=== PATIENT | male | born 1970 | race Two or more races ===

== ENCOUNTER 2017-11-20 17:56 | Emergency (ER) | payer SELFPAY ==
[2017-11-20 18:02] VITALS: BP 112/73; PULSE 90; RESP 16; TEMP 100.1; O2SAT 95
--- NOTE | 2017-11-20 18:10 | ED PDOC ---
HPI: Psych/Substance Abuse Time Seen by Provider: 11/20/17 18:07 Chief Complaint (Nursing): Substance Abuse Chief Complaint (Provider): substance abuse History Per: Patient Additional Complaint(s): 47-year-old male presents to emergency department for evaluation of substance abuse. Patient admits to using heroin today. He complains of nausea, vomiting and abdominal pain upon arrival. He denies use of any other drugs. Past Medical History Reviewed: Historical Data, Nursing Documentation, Vital Signs Vital Signs: Last Vital Signs Temp 100.1 F H 11/20/17 18:01 Pulse 90 11/20/17 18:01 Resp 16 11/20/17 18:01 BP 112/73 11/20/17 18:01 Pulse Ox 95 11/20/17 18:01 - Medical History PMH: No Chronic Diseases - Family History Family History: States: No Known Family Hx - Living Arrangements Living Arrangements: Other (non-domiciled) - Social History Drugs: Opiates (heroin) - Allergies Allergies/Adverse Reactions: Allergies Allergy/AdvReac Type Severity Reaction Status Date / Time No Known Allergies Allergy Verified 11/20/17 18:00 Review of Systems ROS Statement: Except As Marked, All Systems Reviewed And Found Negative Psych: Positive for: Other (heroin abuse) Physical Exam - Reviewed Nursing Documentation Reviewed: Yes Vital Signs Reviewed: Yes - Physical Exam Appears: Positive for: Well, Non-toxic, No Acute Distress Skin: Negative for: Rash Eye Exam: Positive for: Normal appearance Cardiovascular/Chest: Positive for: Regular Rate, Rhythm Respiratory: Positive for: Normal Breath Sounds Neurologic/Psych: Positive for: Alert, Oriented - ECG O2 Sat by Pulse Oximetry: 95 Pulse Ox Interpretation: Normal Medical Decision Making Medical Decision Makin-year-old male with history of heroin abuse. Plan: IM an Patient is awake and alert, stable for discharge. Disposition - Clinical Impression Clinical Impression: Heroin abuse - Patient ED Disposition Is Patient to be Admitted: No - Disposition Referrals: [facility] [place] [Outside] Disposition: Routine/Home Disposition Time: 19:44 Condition: FAIR Instructions: Narcotic Abuse (ED) Forms: [employer] (Welsh)
== END 2017-11-20 20:23 | disposition home or self-care (01) ==
LOC: H.ER 17:56
DX: F11.10 Opioid abuse, uncomplicated (principal)
CPT/HCPCS: 82948; 96372; 99283; J2405

== ENCOUNTER 2017-12-04 22:02 | Emergency (ER) | payer SELFPAY ==
[2017-12-04 22:06] VITALS: RESP 16; TEMP 97.9
--- NOTE | 2017-12-04 23:04 | ED PDOC ---
HPI: Psych/Substance Abuse Time Seen by Provider: 12/04/17 22:16 Chief Complaint (Nursing): Substance Abuse Chief Complaint (Provider): Substance Abuse ED Caveat: Intoxicated History Per: Patient History/Exam Limitations: intoxication Additional Complaint(s): Bairon is a 47 y/o male with known heroine abuse who was brought in by EMS for heroine abuse. Patient admits to using heroine today but denies any other drugs or alcohol. He denies trauma. PMD: None Past Medical History Reviewed: Historical Data, Nursing Documentation, Vital Signs Vital Signs: Last Vital Signs Temp 97.9 F 12/04/17 22:06 Pulse 61 12/04/17 22:06 Resp 16 12/04/17 22:06 BP 142/91 H 12/04/17 22:06 Pulse Ox 100 12/04/17 22:06 - Family History Family History: States: Unknown Family Hx - Social History Drugs: Opiates (heroine) - Allergies Allergies/Adverse Reactions: Allergies Allergy/AdvReac Type Severity Reaction Status Date / Time No Known Allergies Allergy Verified 11/20/17 18:00 Review of Systems Review Of Systems: ROS cannot be obtained secondary to pt's inabilty to answer questions. Physical Exam - Reviewed Nursing Documentation Reviewed: Yes Vital Signs Reviewed: Yes - Physical Exam Appears: Positive for: No Acute Distress Head Exam: Positive for: ATRAUMATIC, NORMAL INSPECTION, NORMOCEPHALIC Skin: Positive for: Normal Color, Warm, Dry Eye Exam: Negative for: Normal appearance (pinpoint pupils b/l) ENT: Positive for: Normal ENT Inspection Neck: Positive for: Normal, Painless ROM, Supple Cardiovascular/Chest: Positive for: Regular Rate, Rhythm. Negative for: Murmur Respiratory: Positive for: Normal Breath Sounds (maintaining airway). Negative for: Respiratory Distress Gastrointestinal/Abdominal: Positive for: Normal Exam, Bowel Sounds, Soft. Negative for: Tenderness Back: Positive for: Normal Inspection Extremity: Positive for: Normal ROM. Negative for: Pedal Edema, Deformity Neurologic/Psych: Negative for: Alert (arousable to voice, answers questions, falls asleep quickly), Oriented - ECG O2 Sat by Pulse Oximetry: 100 (RA) Pulse Ox Interpretation: Normal Medical Decision Making Medical Decision Making: Time: 23:00 Initial Impression: Heroine Abuse Initial Plan: --Reevaluation Time: 5:07 --Patient is awake, alert, and oriented x 3 Upon provider evaluation patient is medically stable, and requires no further treatment in the ED at this time. Counseling was provided and all questions were answered regarding diagnosis and need for follow up. There is agreement to discharge plan. Return if symptoms persist or worsen. Scribe Attestation: Documented by Doc Nguyễn, acting as a scribe for Dr. Dariel Mares MD Provider Scribe Attestation: All medical record entries made by the Scribe were at my direction and personally dictated by me. I have reviewed the chart and agree that the record accurately reflects my personal performance of the history, physical exam, medical decision making, and the department course for this patient. I have also personally directed, reviewed, and agree with the discharge instructions and disposition. Disposition - Clinical Impression Clinical Impression: Heroin abuse - Patient ED Disposition Is Patient to be Admitted: No Counseled Patient/Family Regarding: Studies Performed, Diagnosis, Need For Followup - Disposition Referrals: [facility] [Outside] Disposition: Routine/Home Disposition Time: 05:07 Condition: STABLE Instructions: Narcotic Abuse (ED) Forms: [employer] (Estonian)
[2017-12-05 05:09] VITALS: O2SAT 100
[2017-12-05 05:45] VITALS: BP 157/93; PULSE 65
== END 2017-12-05 06:25 | disposition home or self-care (01) ==
LOC: H.ER 22:02
DX: F11.10 Opioid abuse, uncomplicated (principal)

== ENCOUNTER 2018-02-01 00:03 | Emergency (ER) | payer SELFPAY ==
[2018-02-01 00:12] VITALS: BP 130/80; RESP 18; TEMP 98
[2018-02-01 00:54] VITALS: PULSE 97; O2SAT 98
--- NOTE | 2018-02-01 01:58 | ED PDOC ---
HPI: Back Time Seen by Provider: 02/01/18 00:14 Chief Complaint (Nursing): Back Pain Chief Complaint (Provider): Back Pain History Per: Patient, EMS History/Exam Limitations: other (Patient uncooperative) Onset/Duration Of Symptoms: Hrs (prior to arrival) Current Symptoms Are (Timing): Still Present Additional Complaint(s): Bairon Skelton is a 47 year old male with unknown past medical history, who was brought tot EMS for evaluation of lower back pain, [place]. Upon further questioning, patient states that he just wants to sleep and to "leave him alone." As a result, no further information could be obtained. Patient states he has no complaints at present, despite EMS report. PMD: unknown Past Medical History Reviewed: Historical Data, Nursing Documentation, Vital Signs Vital Signs: Last Vital Signs Temp 98.0 F 02/01/18 00:10 Pulse 97 H 02/01/18 00:53 Resp 18 02/01/18 00:53 BP 130/80 02/01/18 00:10 Pulse Ox 98 02/01/18 00:53 - Family History Family History: States: Unknown Family Hx - Allergies Allergies/Adverse Reactions: Allergies Allergy/AdvReac Type Severity Reaction Status Date / Time No Known Allergies Allergy Verified 02/01/18 00:10 Review of Systems ROS Statement: Except As Marked, All Systems Reviewed And Found Negative Review Of Systems: ROS cannot be obtained secondary to pt's inabilty to answer questions. (patient will not answer questions) Physical Exam - Reviewed Nursing Documentation Reviewed: Yes Vital Signs Reviewed: Yes - Physical Exam Appears: Positive for: Non-toxic, No Acute Distress Head Exam: Positive for: ATRAUMATIC, NORMOCEPHALIC Skin: Negative for: Diaphoresis Eye Exam: Positive for: EOMI, PERRL Neck: Positive for: Painless ROM, Supple Respiratory: Negative for: Respiratory Distress Neurologic/Psych: Positive for: Alert, Oriented (x3), Gait (steady in ED). Negative for: Aphasia, Facial Droop Comments: Exam limited due to patient being uncooperative with ED staff. - ECG O2 Sat by Pulse Oximetry: 98 (RA) Pulse Ox Interpretation: Normal Medical Decision Making Medical Decision Making: Time: 00:54 Upon arrival to the ED, patient was uncooperative and stated that he just wanted to sleep. Patient requires no further intervention at this time in the ED. After provider evaluation, patient offers no medical complaints and is stable for discharge. Patient instructed to follow-up with pmd / referral provided / the clinic in 1- 2 days without fail. Return to the emergency room at any time for any new or worsening symptoms. Patient states he fully agrees with and understands discharge instructions. States that he agrees with the plan and disposition. Verbalized and repeated discharge instructions and plan. I have given the patient opportunity to ask any additional questions. Scribe Attestation: Documented by Ratna Estrada acting as a scribe for Lisbet Cota PA-C., MD Scribe Attestation: All medical record entries made by the Scribe were at my direction and personally dictated by me. I have reviewed the chart and agree that the record accurately reflects my personal performance of the history, physical exam, medical decision making, and the department course for this patient. I have also personally directed, reviewed, and agree with the discharge instructions and disposition. Disposition - Clinical Impression Clinical Impression: Malingering, Back pain - Patient ED Disposition Is Patient to be Admitted: No Counseled Patient/Family Regarding: Diagnosis, Need For Followup - Disposition [facility] Disposition: Routine/Home Disposition Time: 00:54 Condition: FAIR Instructions: General (DC) Forms: [employer] (Malay) Print Language: SENEGALESE - POA Present On Arrival: None
== END 2018-02-01 03:45 | disposition home or self-care (01) ==
LOC: H.ER 00:03
DX: M54.9 Dorsalgia, unspecified (principal); Z76.5 Malingerer [conscious simulation]